=== PATIENT | female | born 1965 | race Asian ===

== ENCOUNTER 2023-09-27 12:25 | Emergency (ER) | payer MEDICAID, SELFPAY ==
--- NOTE | ~2023-09-27 | XR_ITS ---
EXAMINATION: XR WRIST, LEFT X-ray forearm, left CLINICAL INFORMATION: COMPARISON: None available. TECHNIQUE: 4 views of the left wrist. 2 views of the left forearm FINDINGS: Left wrist: There is a transverse slightly impacted nondisplaced fracture of the distal radius. No other fracture is seen. Carpal bones are normal. There is overlying soft tissue swelling. Left forearm: Transverse minimally impacted fracture of the distal radius. No other fracture. Normal elbow and wrist joints. Soft tissue swelling over the fracture. XR/XR wrist LT min 3V IMPRESSION: Nondisplaced slightly impacted fracture of the left distal radius.
--- NOTE | ~2023-09-27 | XR_ITS ---
EXAMINATION: XR FOREARM, LEFT See combined report with left wrist x-ray from the same day
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
[2023-09-27 13:23] VITALS: BP 135/79; PULSE 74; RESP 18; TEMP 36.2; O2SAT 99; BMI 27.3
== END 2023-09-27 16:47 | disposition home or self-care (01) ==
PROVIDERS: Emergency Provider Emergency Medicine Emergency Medical Services
DX: S62.102A Fracture of unspecified carpal bone, left wrist, initial encounter for closed fracture (principal); M79.642 Pain in left hand; X58.XXXA Exposure to other specified factors, initial encounter; Y93.9 Activity, unspecified; Y92.009 Unspecified place in unspecified non-institutional (private) residence as the place of occurrence of the external cause; Y99.8 Other external cause status
CPT/HCPCS: 29125; 73090; 73110; 99283; 99284

== ENCOUNTER 2023-10-04 10:05 | Outpatient (REF) | payer MEDICAID, SELFPAY ==
--- NOTE | ~2023-10-04 | XR_ITS ---
EXAMINATION: XR WRIST, LEFT CLINICAL INFORMATION: Pain in unspecified wrist. COMPARISON: 09/26/2013. TECHNIQUE: PA, lateral, and oblique views of the left wrist. FINDINGS: The bones are diffusely demineralized. Redemonstration of a transverse, slightly impacted fracture of the distal radius. Alignment is similar. Minimal bridging callus formation. XR/XR wrist LT min 3V IMPRESSION: Redemonstration of transverse, slightly impacted fracture of the distal radius. Alignment is similar. Minimal bridging callus formation.
== END 2023-10-04 10:06 | disposition home or self-care (01) ==
LOC: HO.HOSX 10:05
PROVIDERS: Visit Provider Physician Assistant
DX: S52.502A Unspecified fracture of the lower end of left radius, initial encounter for closed fracture (principal)
CPT/HCPCS: 25600; 73110; 99202

== ENCOUNTER 2023-10-04 10:37 | Outpatient (AMB) | payer MEDICAID, SELFPAY ==
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
[2023-10-04 10:51] VITALS: BMI 27.1
== END 2023-10-04 11:55 | disposition home or self-care (01) ==
PROVIDERS: Visit Provider Physician Assistant
DX: S52.502A Unspecified fracture of the lower end of left radius, initial encounter for closed fracture (principal)
CPT/HCPCS: 25600; 99204

== ENCOUNTER 2023-10-27 11:07 | Outpatient (AMB) | payer MEDICAID, SELFPAY ==
--- NOTE | 2023-10-27 11:26 | MHC.OFFVIS ---
Intake Visit Reasons: OV - left distal radius fx, DOI 67 Intake Note: Kit is a 58 year old right hand dominant female who presents today with Jeremie Lawrence ([facility]) for a evaluation of her left wrist fx, DOI 09/24/23. Currently is not having much pain at the moment. Denies numbness numbness and tingling. Allergies risperidone [From Risperdal] Adverse Reaction (Intermediate, Verified 10/27/23 11:29) Agitated HPI HPI OV - left distal radius fx, DOI 67: Details: 58-year-old right hand dominant female who presents in the office today with Jeremie vora transportation services representative from [facility] for follow-up of left distal radius fracture which occurred on 09/24/2023. I last saw the patient in the office on 10/04/2023, when she was placed in a custom-made short arm cast. She was educated about the lifting restrictions and cast maintenance. ? While in the office today, the patient reports she is not having ?much? pain. She denies numbness or tingling. Patient lives in a residential, per ED note. ? Patient has a significant medical history of diabetes mellitus and cognitive impairment.? [facility] Social History (Updated 10/04/23 @ 10:51 by Kamala Mulligan) Alcohol intake: never Patient Tobacco Use Status: Never used Tobacco Review of Systems Const All systems reviewed & are unremarkable except as noted in HPI and below Physical Exam Const General: cooperative and no acute distress Orientation/consciousness: patient oriented x3 Resp Effort & Inspection: normal respiratory effort and able to speak in complete sentences Cardio Rate: regular rate Peripheral pulses: Peripheral pulses 2+ throughout GI Palpation (GI): Soft to palpation Skin General skin exam: no rashes or lesions noted Lesions: no lesions Rashes: no rashes Neuro General: patient oriented x3 Extrem Other: Left hand/wrist: Normal to inspection. No ecchymosis, erythema, or edema. No tenderness to palpation at the distal radius over the fracture site. Able to perform full finger flexion, extension, abduction, adduction, finger cross, okay sign, and thumbs up without deficit. Able to make a closed fist. Stiffness with wrist flexion, extension, ulnar and radial deviation. Sensation intact. Capillary refill is brisk. Radial pulse intact. Assessment & Plan Assessment & Plan (1) Fracture of left distal radius: Code(s): S52.502A - Unspecified fracture of the lower end of left radius, initial encounter for closed fracture Category: Medical Plan 58-year-old right hand dominant female who presents in the office today with Jeremie, a transportation services representative from [employer] for follow-up of left distal radius fracture which occurred on 09/24/2023. I last saw the patient in the office on 10/04/2023, when she was placed in a custom-made short arm cast. She was educated about the lifting restrictions and cast maintenance. While in the office today, the patient reports she is not having ?much? pain. She denies numbness or tingling. Patient lives in a residential, per ED note. ? Patient has a significant medical history of diabetes mellitus and cognitive impairment.? The patient was transitioned to a Velcro wrist splint, off the shelf, for the next 2 weeks. I would like her to wear as a cast?that can be removed for bathing and hand washing. I have placed a referral to occupational therapy in which she will attend to work on ROM and to wean out of the Velcro wrist splint in 2 weeks. She was instructed to refrain from lifting, pushing, pulling, or carrying anything greater than a coffee cup or cell phone. Follow-up will be in 6 weeks for ROM check, or sooner if needed. ? X-rays of the?left hand/wrist which were obtained while in the office today and were reviewed by me, Beverly Meredith PA-C, revealed routine healing of?the left distal radius fracture.? Orders: Orders OT Evaluation and Treatment 10/27/23 S52.502A - Unspecified fracture of the lower end of left radius, initial encounter for closed fracture Patient Instructions: Scribed by Esa De Luna medical director occupational health, for Beverly Meredith PA-C on 10/27/2023 at?11:30 AM EST? Corrections were made by Mónica Bass medical director occupational health, on 10/27/2023 at 4:15 pm, EST. Coding Level of Care Code Global (83807) Diagnoses Fracture of left distal radius S52.502A
== END 2023-10-27 11:38 | disposition home or self-care (01) ==
PROVIDERS: Visit Provider Physician Assistant
DX: S52.502A Unspecified fracture of the lower end of left radius, initial encounter for closed fracture (principal)
CPT/HCPCS: 99024

== ENCOUNTER 2023-10-27 13:05 | Outpatient (REF) | payer MEDICAID, SELFPAY ==
--- NOTE | ~2023-10-27 | XR_ITS ---
EXAMINATION: XR WRIST, LEFT CLINICAL INFORMATION: Pain in the wrist COMPARISON: Multiple prior examinations dating back to 09/27/2023 with the most recent 10/04/2023 TECHNIQUE: 2 views of the left wrist FINDINGS: Redemonstrated of minimally displaced transverse fracture the distal radius unchanged in alignment. There is some new callus formation noted dorsally. The remaining bones joints and soft tissues are unremarkable. XR/XR wrist LT 2V IMPRESSION: Healing distal radius fracture unchanged in alignment.
== END 2023-10-27 13:06 | disposition home or self-care (01) ==
LOC: HO.HOSX 13:05
PROVIDERS: Visit Provider Physician Assistant
DX: S52.502D Unspecified fracture of the lower end of left radius, subsequent encounter for closed fracture with routine healing (principal)
CPT/HCPCS: 73100; 99212

== ENCOUNTER 2024-01-31 10:46 | Outpatient (AMB) | payer MEDICAID, SELFPAY ==
--- NOTE | 2024-01-31 10:49 | A.OFFVIS_ITS ---
Vital Signs 01/31/24 10:53 Height 5 ft Weight 139 lb BMI 27.1 Intake Visit Reasons: OV - Lt distal radius fx, DOI 09/24/23(ROM check) Intake Note: Kit is a 58 year old right hand dominant female who presents today with Jeremie Lawrence ([employer] [facility]) for a ROM check of her left distal radius fx, DOI 09/24/23. She is doing well, she has noticed some swelling in her thumbs unsure when it started. Allergies risperidone [From Risperdal] Adverse Reaction (Intermediate, Verified 01/31/24 10:53) Agitated HPI HPI OV - Lt distal radius fx, DOI 09/24/23(ROM check): Details: 58-year-old right hand dominant female who presents in the office today with Jeremie Lawrence, a sales representative door to door from [employer] for a follow-up of left distal radius fracture which occurred on 09/24/23. I last saw the patient in the office on 10/27/23, when she was transitioned to a Velcro wrist splint for 2 weeks and was referred to occupational therapy. She was instructed to refrain from lifting, pushing, pulling or carrying anything greater than a coffee cup or cell phone. While in the office today, the patient reports she is doing well. She mentions that she has noticed mild edema in her left thumb but is uncertain when it started. Patient lives in a long term. Patient has a significant medical history of diabetes mellitus and cognitive impairment. [facility] Social History Alcohol intake: never Patient Tobacco Use Status: Never used Tobacco Review of Systems Const All systems reviewed & are unremarkable except as noted in HPI and below Physical Exam Vital Signs: BMI result Body Mass Index 27.1 Const General: cooperative, healthy appearing and no acute distress Orientation/consciousness: patient oriented x3 Resp Effort & Inspection: normal respiratory effort and able to speak in complete sentences Cardio Rate: regular rate Peripheral pulses: Peripheral pulses 2+ throughout GI Palpation (GI): Soft to palpation Skin General skin exam: no rashes or lesions noted Lesions: no lesions Rashes: no rashes Neuro General: patient oriented x3 Extrem Other: Left hand/wrist: Normal to inspection. No ecchymosis, erythema, or edema. No tenderness to palpation at the distal radius over the fracture site. Able to perform full finger flexion, extension, abduction, adduction, finger cross, okay sign, and thumbs up without deficit. Able to make a closed fist. Stiffness with wrist flexion, extension, ulnar and radial deviation. Sensation intact. Capillary refill is brisk. Radial pulse intact. Assessment & Plan Assessment & Plan (1) Fracture of left distal radius: Code(s): S52.502A - Unspecified fracture of the lower end of left radius, initial encounter for closed fracture Category: Medical Plan Ms. Florian is a 58-year-old right hand dominant female who presents in the office today with Jeremie Lawrence, a sales representative door to door from [employer] for a follow-up of left distal radius fracture which occurred on 09/24/23. I last saw the patient in the office on 10/27/23, when she was transitioned to a Velcro wrist splint for 2 weeks and was referred to occupational therapy. She was instructed to refrain from lifting, pushing, pulling or carrying anything greater than a coffee cup or cell phone. While in the office today, the patient reports she is doing well. She mentions that she has noticed mild edema in her left thumb but is uncertain when it started. Patient lives in a long term. Patient has a significant medical history of diabetes mellitus and cognitive impairment. The patient can return to normal activities as tolerated. She will likely experience difficulty with wrist extension s/p injury. Follow-up will be PRN, or sooner if needed. Patient Instructions: Scribed by Aditi Johnson medical records analyst, for Beverly Meredith PA-C on 01/31/24 at 11:27 am EST. Coding Level of Care Code Est Pt Level 3 (90058) Diagnoses Fracture of left distal radius S52.502A
[2024-01-31 10:53] VITALS: BMI 27.1
== END 2024-01-31 12:39 | disposition home or self-care (01) ==
PROVIDERS: Visit Provider Physician Assistant
DX: S52.502A Unspecified fracture of the lower end of left radius, initial encounter for closed fracture (principal)
CPT/HCPCS: 99212

== ENCOUNTER → 2024-01-31 10:46 | Outpatient (BNVA) | payer MEDICAID, SELFPAY | PROVIDERS: Visit Provider Physician Assistant | DX: S52.502D Unspecified fracture of the lower end of left radius, subsequent encounter for closed fracture with routine healing (principal); X58.XXXD Exposure to other specified factors, subsequent encounter | CPT/HCPCS: 99212 ==